=== PATIENT | male | born 1965 | race Caucasian/White ===

== ENCOUNTER 2016-03-31 09:26 | Day surgery (SDC) | payer OTHER ==
[2016-03-31] MEDS ORDERED: IV START KIT ONE (09:52)
[2016-03-31] MEDS ORDERED: LACTATED RINGERS 1,000 ML ONE (09:52)
[2016-03-31] MEDS ORDERED: LACTATED RINGERS 1,000 ML IV SCH (10:45)
[2016-03-31] MEDS ORDERED: PROPOFOL 40 ML IV ONE (11:10)
[2016-03-31] MEDS ORDERED: LIDOCAINE Viscous 2% 15 ML UDCUP ONE (11:12)
[2016-03-31 20:25] LABS: HELICOBACTER PYLORII DETECTION NEGATIVE (NEGATIVE)
--- NOTE | 2016-04-02 09:10 | SURGPATH ---
[facility] [address] [place] [id number] Patient Name: DAVID MORALES II MR#: [id number] : 1965 Gender: M Specimen #: [id number] Collected: 03/31/2016 Received: 04/01/2016 Reported: 04/02/2016 Submitting Phys: SCOUT VALE Copy To Phys: [facility] Clinical History / Pre-Operative Diagnosis: GERD; RULE OUT GIARDIA, CELIAC SPRUE Specimen Source / Surgical Procedure Performed: #1-DUODENAL; #2-FUNDUS OF STOMACH; #3-GE JUNCTION X2 Interpretation: DUODENUM, BIOPSIES: - NO PATHOLOGIC ABNORMALITY 2. GASTRIC FUNDUS, BIOPSY: - NO PATHOLOGIC ABNORMALITY 3. GE JUNCTION, BIOPSIES: - CONSISTENT WITH REFLUX ESOPHAGITIS Electronically Signed Out Landry Sutton M.D. Gross Description: #1 The specimen is received in a formalin filled container labeled with the patient's name and "duodenal". A single shah biopsy is 0.5 cm. Totally embedded in cassette #1. #2 The specimen is received in a formalin filled container labeled with the patient's name and "fundus". A single shah biopsy is 0.6 x 0.2 x 0.1 cm. Totally embedded in cassette #2. #3 The specimen is received in a formalin filled container labeled with the patient's name and "GE junction x2". Three conte biopsies are 0.4, 0.5 and 0.6 cm. Totally embedded in cassette #3. Jazmin Bray Microscopic Description: Microscopic performed. 1: [id number] 2: [id number] 3: 41271 K21.0
== END 2016-03-31 12:45 | disposition home or self-care (01) ==
LOC: SDC 09:26
PROVIDERS: ATTEND Family Medicine
PROC: 0DB68ZX Excision of Stomach, Via Natural or Artificial Opening Endoscopic, Diagnostic (ICD-10-PCS; principal; 2016-03-31)
PROC: 0DB48ZX Excision of Esophagogastric Junction, Via Natural or Artificial Opening Endoscopic, Diagnostic (ICD-10-PCS; principal; 2016-03-31)
PROC: 0DB98ZX Excision of Duodenum, Via Natural or Artificial Opening Endoscopic, Diagnostic (ICD-10-PCS; principal; 2016-03-31)
DX: K29.70 Gastritis, unspecified, without bleeding (principal); K21.0 Gastro-esophageal reflux disease with esophagitis; E78.5 Hyperlipidemia, unspecified; K75.81 Nonalcoholic steatohepatitis (NASH)
CPT/HCPCS: 87081; 43239; A9270; J7120

== ENCOUNTER 2016-05-22 16:22 | Emergency (ER) | payer OTHER ==
[2016-05-22] MEDS ORDERED: ASPIRIN CHEWTAB 81 MG TABLET ONE (17:41)
[2016-05-22 18:09] LABS: ABSOLUTE NEUTROPHIL COUNT 3.7 K/mm3 (1.8-7.7); BASO # 0.1 K/mm3 (0.0-0.2); BASO % 0.9 % (0.2-1.0); EOS # 0.2 (0.0-0.5); EOS % 2.1 % (0.9-2.9); HEMATOCRIT 44.7 % (32.0-52.0); HEMOGLOBIN 15.3 gm/l (14.0-18.0); IMM NEUT% 0.1 % (0-1); LYMPH % 39.2 % (15-45); MEAN CELL VOLUME 88.3 fl (80.0-94.0); MEAN CORPUSCULAR HEMOGLOBIN 30.2 pg (27.0-31.0); MEAN CORPUSCULAR HGB CONC 34.2 g/dl (33.0-37.0); MEAN PLATELET VOLUME 10.1 fl (7.4-10.4); MONO # 0.7 (0.0-0.8); NEUT % 48.7 % (43-75); PLATELET COUNT 268 K/mm3 (130-400)
[2016-05-22 18:19] LABS: ALB/GLOB RATIO 1.6 (>1.0); ALBUMIN 4.5 gm/dL (3.5-5.7); CALCIUM 9.9 mg/dL (8.6-10.3)
[2016-05-22 18:23] LABS: TROPONIN I < 0.01 ng/ml (0.0-0.06)
--- NOTE | 2016-05-22 18:26 | RAD ---
CHEST 2 VIEWS HISTORY: Left arm pain. Frontal and lateral chest radiographs dated 05/22/2016. COMPARISON: None. FINDINGS: FOCAL AIRSPACE OPACITY: No gross airspace consolidation. PLEURAL EFFUSION: None. CARDIOMEDIASTINAL SILHOUETTE: Nonenlarged. PNEUMOTHORAX: None identified. OSSEOUS STRUCTURES: Minor kyphosis with thoracic disc degeneration. IMPRESSION: No acute cardiopulmonary process noted.
== END 2016-05-22 19:17 | disposition home or self-care (01) ==
LOC: ED 16:22
DX: M79.602 Pain in left arm (principal); I10 Essential (primary) hypertension